=== PATIENT | female | born 1995 | race Caucasian/White ===

== ENCOUNTER 2020-06-30 15:24 | Emergency (ER) | payer MEDICAID ==
[2020-06-30] MEDS ORDERED: TOPCARE OMEPRAZ20 MG PO (15:45)
[2020-06-30] MEDS ORDERED: PRENATAL MULTI1 EAC3 PO (15:45)
[2020-06-30] MEDS ORDERED: TYLENOL EXTRA500 M2 PO (15:46)
[2020-06-30] MEDS ORDERED: CALCIUM CARBONATE PO (15:46)
[2020-06-30 16:14] LABS: BASO # 0.01 (0.02-0.10); EOS # 0.08 (0.04-0.40); EOS % 1.2 % (1.0-5.0); HEMATOCRIT 33.7 % (37.0-47.0); HEMOGLOBIN 11.1 g/dL (12.5-16.0); LYMPH# 1.67 (1.50-4.00); MEAN CELL VOLUME 85 fl (78-100); MEAN CORPUSCULAR HEMOGLOBIN 28 pg (27-31); MEAN CORPUSCULAR HGB CONC 33 g/dL (33-37); MEAN PLATELET VOLUME 10.2 fl (7.4-10.4); MONO # 0.41 (0.20-0.80); NEU # 4.63 (1.40-6.50); PLATELET COUNT 207 K/mm3 (130-400); RED BLOOD COUNT 3.95 M/mm3 (4.10-5.30); RED CELL DISTRIBUTION WIDTH 13.4 % (11.5-14.5); WHITE BLOOD COUNT 6.8 K/mm3 (4.8-10.8)
[2020-06-30 16:30] LABS: ALBUMIN 3.3 g/dL (3.5-5.0)
[2020-06-30 16:31] LABS: POTASSIUM 3.6 mmol/L (3.5-5.1)
[2020-06-30 16:32] LABS: CALCIUM 8.7 mg/dL (8.3-10.5)
[2020-06-30 16:33] LABS: TOTAL PROTEIN 6.3 g/dL (6.4-8.3)
[2020-06-30 16:35] LABS: TOTAL BILIRUBIN 0.2 mg/dL (0.2-1.2)
[2020-06-30 16:50] LABS: URINE APPEARANCE HAZY; URINE BILIRUBIN NEGATIVE (NEGATIVE); URINE COLOR YELLOW; URINE GLUCOSE 50 mg/dL mg/dL (NEGATIVE); URINE KETONE NEGATIVE (NEGATIVE); URINE PROTEIN(semi-quant) NEGATIVE (NEGATIVE)
[2020-06-30 16:51] LABS: URINE BLOOD TRACE (NEGATIVE); URINE LEUKOCYTE ESTERASE NEGATIVE (NEGATIVE); URINE MUCUS PRESENT (NOT PRESENT); URINE NITRATE NEGATIVE (NEGATIVE); URINE UROBILINOGEN NORMAL (NORMAL)
[2020-06-30 18:52] VITALS: BP 108/77
== END 2020-06-30 18:52 | disposition home or self-care (01) ==
LOC: ED 15:24
PROVIDERS: Nurse Practitioner
DX: O99.891 Other specified diseases and conditions complicating pregnancy (principal); H53.8 Other visual disturbances; O99.612 Diseases of the digestive system complicating pregnancy, second trimester; K21.9 Gastro-esophageal reflux disease without esophagitis; Z87.42 Personal history of other diseases of the female genital tract; Z79.899 Other long term (current) drug therapy; Z3A.26 26 weeks gestation of pregnancy

== ENCOUNTER → 2021-02-03 | Outpatient (CLI) | payer MEDICAID ==
[~2021-02-03] MED LIST: CALCIUM CARBONATE PO; PRENATAL MULTI1 EAC3 PO; TOPCARE OMEPRAZ20 MG PO; TYLENOL EXTRA500 M2 PO
== END ==
LOC: LAB 20:39
DX: Z20.822 Contact with and (suspected) exposure to COVID-19 (principal)